=== PATIENT | female | born 1970 | race Caucasian/White ===

== ENCOUNTER → 2018-03-05 | Outpatient (CLI) | payer OTHER ==
--- NOTE | 2018-03-18 12:10 | MM ---
Reason for exam: clinical finding. Last mammogram was performed 3 years and 3 months ago. History: Patient has history of breast cancer at age 34. Family history of breast cancer in mother at age 32, breast cancer in maternal grandmother at age 61, breast cancer in aunt, and breast cancer in maternal grandmother. Indicated problem(s): lump or thickening in the left breast. Physical Findings: Nurse Summary: 1cm nodules in the left breast (nurse dw). MG 3D Diag Mammo W/Cad HANSA Bilateral CC and MLO view(s) were taken. Prior study comparison: December 14, 2014, mammogram, performed at [facility]. June 08, 2014, mammogram, performed at [facility]. July 30, 2013, mammogram, performed at [facility]. The breast tissue is heterogeneously dense. This may lower the sensitivity of mammography. There are benign appearing round, oval, circumscribed bilateral masses waxing and waning over multiple priors mammographically compatible with cysts. There is an increasing group of calcifications in the upper outer quadrant of the left breast at posterior depth 10cm from nipple. Other scattered bilateral typically benign calcifications are seen. Bilateral biopsy markers noted. These results were verbally communicated with the patient on 03/18/18. ASSESSMENT: Incomplete: need additional imaging evaluation, BI-RAD 0 RECOMMENDATION: Special view mammogram of the left breast. (magnification) Ultrasound of the left breast. (upper outer quadrant for palpable abnormalities) Manage on a clinical basis with regard to green discharge, typically physiologic.
== END | disposition home or self-care (01) ==
LOC: RADMAMWWP 09:54
PROVIDERS: ATTEND Internal Medicine
DX: N63.0 Unspecified lump in unspecified breast (principal); Z85.3 Personal history of malignant neoplasm of breast
CPT/HCPCS: 77066; G0279; 77062

== ENCOUNTER → 2018-03-24 | Outpatient (CLI) | payer OTHER ==
--- NOTE | 2018-03-25 12:03 | MM ---
Reason for exam: additional evaluation requested from abnormal screening. Last mammogram was performed 1 month ago. History: Patient has history of breast cancer at age 34. Family history of breast cancer in mother at age 32, breast cancer in maternal grandmother at age 61, breast cancer in aunt, and breast cancer in maternal grandmother. Lumpectomy of the left breast, 2005. Radiation therapy of the left breast, 2005. Excisional biopsy of the left breast. Took antineoplastic for 5 years beginning at age 34. Physical Findings: Nurse Summary: 1cm nodule in the left breast at 1 o'clock and 2 o'clock (nurse mj). MG 3D Follow Up No Charge LT CC with magnification, LM with magnification, and LM view(s) were taken of the left breast. Prior study comparison: March 05, 2018, bilateral MG 3d diag mammo w/cad HANSA. December 14, 2014, mammogram, performed at [facility]. The breast tissue is heterogeneously dense. This may lower the sensitivity of mammography. There is a increasing group of 1.1cm pleomorphic calcifications in the left upper outer quadrant, 10cm from nipple. These results were verbally communicated with the patient and result sheet given to the patient on 03/24/18. ASSESSMENT: Suspicious, BI-RAD 4 RECOMMENDATION: Stereotactic core biopsy of the left breast. Called with mammographic findings and has scheduled an appointment for the patient for 03/25/18 at 4:[address] Khoury. PRELIMINARY REPORT CALLED AND FAXED TO DR. KHOURY ON 03/25/18.
--- NOTE | 2018-03-25 12:08 | USB ---
Reason for exam: additional evaluation requested from abnormal screening. History: Patient has history of breast cancer at age 34. Family history of breast cancer in mother at age 32, breast cancer in maternal grandmother at age 61, breast cancer in aunt, and breast cancer in maternal grandmother. Lumpectomy of the left breast, 2004. Radiation therapy of the left breast, 2004. Excisional biopsy of the left breast. Took antineoplastic for 5 years beginning at age 34. US Breast Workup LT Left limited breast ultrasound including focal area of concern, retroareolar and axilla demonstrates a 1.4 x 0.4 x 1.2cm hypoechoic, probably cystic lesion at 12 o'clock, a 1.6 x 0.5 x 1.6cm mixed lesion at 1 o'clock BB at the palpable, biopsy is recommended, a 0.7 x 0.3 x 0.8cm cystic lesion at 2 o'clock BB, a 1.8 x 1.0 x 1.1cm cystic cluster at 2 o'clock BB, a 1.2 x 0.5 x 0.9cm mixed lesion at 2 o'clock BB possibly cyst with debris, a 0.8 x 0.5 x 0.5cm mixed lesion at 3 o'clock, possible cyst with debris, a 1.7 x 0.7 x 1.1cm cystic lesion at posterior nipple and a 1.0 x 0.9 x 0.9cm cystic lesion with floating debris at 3 o'clock. Multiple cystic areas visualized. These results were verbally communicated with the patient and result sheet given to the patient on 03/24/18. ASSESSMENT: Suspicious, BI-RAD 4 RECOMMENDATION: Ultrasound core biopsy of the left breast. (1 o'clock mixed lesion, palpable) Stereotactic core biopsy of the left breast. (calcifications) Called with mammographic findings and has scheduled an appointment for the patient for 03/25/18 at 4:[address] Khoury. PRELIMINARY REPORT CALLED AND FAXED TO DR. KHOURY ON 03/25/18.
== END | disposition home or self-care (01) ==
LOC: RADMAMWWP 15:09
PROVIDERS: ATTEND Internal Medicine
DX: R92.8 Other abnormal and inconclusive findings on diagnostic imaging of breast (principal)

== ENCOUNTER → 2018-03-27 | Outpatient (CLI) | payer OTHER ==
[2018-03-27 14:23] VITALS: BP 135/84; PULSE 92; RESP 18; TEMP 96.8; BMI 32.1
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
== END ==
LOC: WWCWWP 14:06
PROVIDERS: ATTEND Surgery
DX: Z53.9 Procedure and treatment not carried out, unspecified reason (principal)

== ENCOUNTER → 2018-03-29 | Outpatient (CLI) | payer OTHER ==
--- NOTE | 2018-03-31 09:32 | PE ---
Nuclear medicine PET/CT HISTORY: Left Breast carcinoma, subsequent Patient received 12.2 mCi F-18 FDG intravenously and delayed scanning was performed from the skull ba se to the mid thighs. Localization and attenuation correction CT scan was also performed. Neck and chest: Emphysematous changes are present within the lungs. No pleural or pericardial effusio n. Some basilar dependent atelectatic changes are present. Some calcified subcentimeter nodules prese nt left and right lower lobes compatible with old granulomatous disease. No mediastinal, axillary, or hilar adenopathy. Abdomen pelvis: The appendix shows luminal high density. No inflammatory change. No retroperitoneal a denopathy. No evident liver mass or suspicious hypermetabolic uptake. Osseous structures: Sclerotic focus present within the left ilium measures approximately 2.6 cm in gr eatest dimension on axial images. Smaller immediate adjacent sclerotic focus on axial image 25 measur es 7 to 8 mm towards the left acetabular roof. Sclerotic focus in the acetabular roof region on the r ight axial image 200 and measures 7 mm. No suspicious hypermetabolic uptake is identified however. De generative disc changes are present especially in the lower lumbar spine. Small focus of mandibular u ptake on the right shows an SUV value of approximately 4.7 of questionable clinical significance, pos sible periodontal disease. IMPRESSION: No suspicious hypermetabolic uptake to suggest metastatic disease. Emphysema. Old granulo matous disease. Probable bone islands within the pelvis.
== END ==
LOC: RADPETMAIN 10:16
PROVIDERS: ATTEND Nurse Practitioner Adult Health
DX: N63.0 Unspecified lump in unspecified breast (principal); N64.52 Nipple discharge; Z85.3 Personal history of malignant neoplasm of breast
CPT/HCPCS: 78815; A9552

== ENCOUNTER → 2018-04-07 | Day surgery (SDC) | payer OTHER ==
[2018-04-07 07:57] VITALS: RESP 16; BMI 31.0
--- NOTE | 2018-04-07 08:45 | P.OP ---
Date of Procedure: 04/07/18 Preoperative Diagnosis: Left breast mammographic abnormality Postoperative Diagnosis: Left breast mammographic abnormality, increasing group of 1.1 cm pleomorphic calcifications in the upper outer quadrant Procedure(s) Performed: Left breast stereotactic core biopsy Anesthesia: local Surgeon: Chata Manzanares Estimated Blood Loss (ml): 0 Pathology: other (left bresat tissue) Condition: stable Disposition: same day Indications for Procedure: Left breast increasing pleomorphic calcifications in the upper outer quadrant area Description of Procedure: Zhanna is a 47-year-old white female who is status post lumpectomy of the left breast in 2004. On a recent mammogram she was noted to have increasing calcifications in the left breast in the upper outer quadrant approximately 10 cm from the nipple. She was recommended to undergo a left breast stereotactic core biopsy, well as an ultrasound biopsy of a second area of concern in the left breast. The patient presents now for the stereotactic core biopsy. The patient was brought to the the stereotactic core room and positioned on the low rad table. The approach to target the lesion was a lateral to medial approach. This was felt to be the shortest route to the area of concern. The area was in the upper outer quadrant approximately 10 cm from the nipple. A film booker view was obtained clearly showing the area of concern. Following this stereo views were obtained. The lesion was targeted. The targeted coordinates were transmitted to the stereotactic table. The patient's breast was prepped using Betadine. 20 mL of 1% lidocaine were used used to anesthetize the area of concern. A 9-gauge vacuum assisted rotating core cutting needle was used to obtain specimens. The needle was driven to the correct coordinates. Pre-and post-fire radiographs revealed that the needle was in the correct location. Approximately 12 specimens were obtained. Radiograph of the specimen revealed that the area of concern had been obtained with calcifications in the specimen. A secure nupur top-hat blocking machine operator was used to identify the area that had been sampled. Correct location of the marker was confirmed radiographically. The specimen was sent to pathology. The patient is scheduled to follow-up with Dr. Dawson in 1 week. She will have ultrasound core biopsy of second area of concern in the left breast.
[2018-04-07 09:49] VITALS: BP 110/73; PULSE 64; TEMP 98.5
--- NOTE | 2018-04-07 10:04 | USB ---
EXAMINATION TYPE: US breast aspiration single LT DATE OF EXAM: 04/07/2018 COMPARISON: 03/24/2018 ultrasound CLINICAL HISTORY: R92.8 ABNORMAL MAMMOGRAM. Abnormal ultrasound Technique: Real-time linear array sonography is performed over the left breast reidentify the upper outer quadrant palpable region. This complex cyst was reidentified. The procedure was explained to the patient for post cyst aspiration and ultrasound-guided core biopsy. Cyst aspiration will be attempted first and if unsuccessful core biopsy would be performed. All questions were answered. Written and verbal informed consent was obtained. A timeout was performed. Under ultrasound guidance the area surrounding the left breast cyst at the palpable abnormality which appeared mildly complex was anesthetized with 1% lidocaine with sodium bicarbonate. Approximately 8 mL was utilized. Following adequate anesthesia, an 18-gauge spinal needle was advanced into the cyst and the cyst was aspirated. There appear to be collapse of the cyst during the procedure. A coil clip was placed at the biopsy site. Postprocedure mammogram: A post procedure mammogram was performed. Coil clip is identified. Additionally, the top and core marker from the patient's stereotactic core biopsy performed prior to this cyst aspiration is identified. Ribbon clip is in the region of the cyst aspiration. Discharge instructions were discussed with the patient. The patient will follow- up with the referring physician for results. Patient was released in stable condition having tolerated the procedure well. IMPRESSION: 1. Successful cyst aspiration complex cyst left upper outer quadrant 1:00 position 2. Placement of a coil clip at the cyst aspiration site. Recommendations: 1. Recommendations are pending pathology results. Pathology Results: Benign LEFT BREAST AT 1:00 POSITION, FINE NEEDLE ASPIRATION BIOPSY: Benign appearing micropapillary to papillary cellular aggregates suggestive of origin in cystic lesion with benign epithelial proliferation. Recommendation Follow up mammogram of the left breast in 6 months. BHAVYA
--- NOTE | 2018-04-07 16:31 | MM ---
EXAMINATION TYPE: MG stereo VAD BX LT DATE OF EXAM: 04/07/2018 COMPARISON: NONE CLINICAL HISTORY: Calcifications, abnormal mammogram TECHNIQUE: Stereotactic guided core biopsy of left breast. FINDINGS: Targeting was performed by surgery. Procedure was performed by surgery. Specimen: Single specimen is presented with multiple calcifications within the specimen. Postprocedure mammogram: 2 views of the left breast were obtained. This was performed in conjunction with the post procedure mammogram of the ultrasound guided biopsy. The surgical clip from the stereotactic core biopsy is identified. Calcifications appear to been resected. Coil clip from the ultrasound-guided core biopsy is within the [id number] weight from the stereotactic core location. Additional ribbon clip from prior biopsy is present. IMPRESSION: 1. Successful stereotactic core biopsy left breast calcifications. 2. Successful clip placement from stereotactic core biopsy and ultrasound- guided core biopsy left breast. Pathology Results: Benign LEFT BREAST LESION, NEEDLE CORE BIOPSIES: Fibrocystic spectrum lesion with areas of sclerosing adenosis, moderate duct hyperplasia, stromal sclerosis, duct cystic changes and abundant intraductal mineralizations. Recommendation Follow up mammogram of the left breast in 6 months. BHAVYA
== END ==
LOC: RADMAMWWP 07:23
PROVIDERS: ATTEND Surgery
DX: N60.12 Diffuse cystic mastopathy of left breast (principal); N60.22 Fibroadenosis of left breast; N60.92 Unspecified benign mammary dysplasia of left breast; N60.02 Solitary cyst of left breast; Z88.0 Allergy status to penicillin; Z88.7 Allergy status to serum and vaccine; Z91.030 Bee allergy status
CPT/HCPCS: 88305; 88173; 19081; 76942; 19000; A4648 ×2; J2001

== ENCOUNTER → 2018-04-11 | Outpatient (CLI) | payer OTHER ==
[2018-04-11 12:04] VITALS: BP 123/82; PULSE 93; RESP 18; TEMP 96.5; BMI 32.1
--- NOTE | 2018-04-11 12:18 | P.PN ---
Subjective Progress Note Date: 04/11/18 Principal diagnosis: Zhanna is a 47-year-old white female who is status post a left breast lumpectomy and radiation therapy at the age of 34 for invasive ductal carcinoma. She recently underwent a bilateral mammogram which revealed an area in the left breast for which stereotactic core biopsy was recommended and the second area for which ultrasound of aspiration/biopsy was recommended. The area of the serotactic core biopsy was felt to be benign. The area of the ultrasound aspiration revealed micropapillary cells and after discussion with pathology cannot rule out an intraductal papilloma and a needle localization and excision of this area has been recommended. The patient states she did have some initial discomfort related to the biopsies but is feeling better. Her last bilateral mammogram was in February 2018 no lesions of concern were noted in the right breast. Objective - Vital Signs Vital signs: Vital Signs Temp 96.5 F L 04/11/18 11:59 Pulse 93 04/11/18 11:59 Resp 18 04/11/18 11:59 BP 123/82 04/11/18 11:59 Pulse Ox 95 04/11/18 11:59 Intake & Output 04/10/18 04/11/18 04/11/18 18:59 06:59 18:59 Weight 98.883 kg - Exam BMI 32.2 - Constitutional General appearance: Present: cooperative, obese - EENT Eyes: Present: EOMI ENT: Present: hearing grossly normal - Neck Neck: Present: normal ROM - Respiratory Respiratory: bilateral: CTA - Cardiovascular Rhythm: regular Heart sounds: normal: S1, S2 - Gastrointestinal Gastrointestinal Comment(s): no guarding or rebound General gastrointestinal: Present: soft - Integumentary Integumentary Comment(s): no jaundice Integumentary: Present: normal turgor - Musculoskeletal Musculoskeletal: Present: gait normal - Psychiatric Psychiatric: Present: A&O x's 3, appropriate affect, intact judgment & insight - Additional findings Additional findings: Examination of the left breast reveals no evidence of infection at the biopsy site, there is some mild resolving ecchymosis, no evidence of hematoma Assessment and Plan Assessment: Impression: 1. Prior left breast cancer treated with lumpectomy and radiation therapy 2. Recent radiographic abnormality of the left breast with stereotactic core biopsy and ultrasound-guided aspiration revealing benign tissue on stereotactic biopsy and findings worrisome for intraductal papilloma on ultrasound-guided aspiration 3. History of lupus 4. Strong family history of breast cancer 6. Colitis Plan: 1. Needle localization excisional biopsy of ultrasound abnormality noted in the left breast this was marked with a corneal clip after the aspiration 2. Consider genetic counseling 3. Medical management of medical conditions Risk and benefits of the operative procedure been discussed with the patient and her and they wish to proceed. This will be scheduled in the near future. Cc: Dr. Peng Aranda
== END | disposition home or self-care (01) ==
LOC: WWCWWP 11:15
PROVIDERS: ATTEND Surgery
DX: Z53.9 Procedure and treatment not carried out, unspecified reason (principal)

== ENCOUNTER → 2018-05-08 | Outpatient (CLI) | payer OTHER ==
[2018-05-08 12:01] VITALS: BP 132/99; PULSE 83; RESP 18; TEMP 97.5; BMI 30.4
--- NOTE | 2018-05-08 12:33 | P.PN ---
Progress Note - Text Progress Note Date: 05/08/18 Zhanna is a 47-year-old white female who has a very strong family history of breast cancer. This includes 12 maternal aunts with breast cancer, mother diagnosed with breast cancer at 38, and the patient herself was diagnosed with a breast cancer at 34. The patient has recently undergone a stereotactic core biopsy of an area of concern in the left breast. This was the side in which the breast cancer was diagnosed. The biopsy revealed fibrocystic spectrum lesion with areas of sclerosing adenosis, moderate duct hyperplasia, stromal sclerosis, duct cystic changes and abundant intraductal mineralization's. Additionally an FNA of a palpable area was performed which revealed micropapillary to papillary cellular aggregates suggestive of origin in cystic lesion with benign epithelial proliferation. The case was discussed with pathology and secondary to her history it was recommended that excisional biopsy of this area be performed. The patient however states that she has been tested for BRCA 1 gene in the past and was told she was positive. She is no longer interested in any interventional biopsies and wishes to undergo bilateral mastectomies. She understands the risks and benefits of this and is going to see plastic surgery for immediate reconstruction. At this time we are waiting for her records from [facility] with respect to her prior breast cancer treatment at the age of 34. I had a long discussion with the patient and her today regarding her breast cancer risk. Again at this time the patient understands and wishes to undergo bilateral mastectomy. She understands that we do not believe she has breast cancer at this time but at minimum would recommend an excisional biopsy of the left breast area of concern. She and her want bilateral mastectomies to be performed. They understand that with the mastectomies no cancer may be found and still wish to proceed. Discussed risks include bleeding infection reaction to the anesthetic. Additionally the patient will need to have continued surveillance as not all breast tissue is removed 100%. She understands this as well. At this time we are waiting her medical records. CC: Consuelo Onofre
--- NOTE | 2018-05-09 16:58 | P.PN ---
Progress Note - Text Progress Note Date: 05/09/18 Ana came to the office today requesting that her records be released to her and stating she wanted a second opinion. I have talked to Consuelo Das the nurse practitioner in Dr. Khoury's office regarding the case. It is our concern that we do not have any pathology nor genetic testing results at this time which would warrant a bilateral mastectomy. Medical records which were provided from [place] did not include any pathology or genetic testing results. Ana was supposed to come to the office today at which time we were going to try to repeat the BRCA1 testing if we could not get the results from her prior reported testing. At this time the patient's care is under Consuelo Das/DR. Khoury. I have discussed this with Consuelo Das, she will keep us informed if we can be of further assistance.
--- NOTE | 2018-05-30 09:56 | P.PN ---
Progress Note - Text Progress Note Date: 05/30/18 I spoke with Consuelo Ceja nurse practitioner from Dr. Khoury's office today regarding Ana Cárdenas. Fernanda was unable to obtain documentation of a left breast cancer. We did obtain documentation from [place] of a benign fibroepithelial lesion removed in 2007. 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 The patient had been treated conservatively since that time. Recently she underwent a stereotactic and ultrasound core biopsy of the left breast. Stereotactic core biopsy was felt to be benign. The ultrasound core aspiration had benign-appearing micropapillary to papillary cellular aggregates; after discussion with pathology it was recommended that needle localization and excision of this area be performed. The patient was concerned that she had had a cancer in the left breast and that she had a very strong family history and had requested that bilateral mastectomies with reconstruction be performed. Patient also told us that she was BRCA1 positive. However, she is unable to provide documentation of any of these findings. BRCA1 was repeated and was negative. 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 No pathology or documentation was able to be provided for any family members. I would therefore recommend genetic counseling and continue to recommend needle local excisional biopsy the area of concern in the left breast. The patient is going to follow with Consuelo Ceja who is planning to refer her back here in the near future. The patient does have a vacation and will be unavailable for approximately 3 weeks.
== END ==
LOC: WWCWWP 10:36
PROVIDERS: ATTEND Surgery
DX: Z53.9 Procedure and treatment not carried out, unspecified reason (principal)

== ENCOUNTER → 2018-06-20 | Outpatient (CLI) | payer OTHER ==
[2018-06-20 16:02] VITALS: BP 135/84; PULSE 92; RESP 18; BMI 29.9
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
== END | disposition home or self-care (01) ==
LOC: WWCWWP 15:53
PROVIDERS: ATTEND Surgery
DX: Z53.9 Procedure and treatment not carried out, unspecified reason (principal)

== ENCOUNTER → 2019-05-22 | Outpatient (CLI) | payer OTHER ==
--- NOTE | 2019-05-22 11:35 | MM ---
Reason for exam: additional evaluation requested from prior study. Last mammogram was performed 1 year and 2 months ago. History: Patient is postmenopausal and has history of breast cancer at age 34. Family history of breast cancer in mother at age 32, breast cancer in maternal grandmother at age 61, breast cancer in aunt, and breast cancer in maternal grandmother. Benign MG stereo VAD BX LT of the left breast, April 07, 2018. Benign US breast aspiration single LT of the left breast, April 07, 2018. Lumpectomy of the left breast, 2004. Radiation therapy of the left breast, 2004. Excisional biopsy of the left breast. Took antineoplastic for 5 years beginning at age 34. Physical Findings: Nurse Summary: 1cm nodule in the let breast at 12 and 2 o'clock (nurse kp). MG 3D Diag Mammo W/Cad HANSA Bilateral CC and MLO view(s) were taken. Prior study comparison: March 24, 2018, left breast MG 3d follow up no charge LT. March 05, 2018, bilateral MG 3d diag mammo w/cad HANSA. Finding #1: Architectural distortion in the left breast consistent with known excision changes. Finding #2: There are typically benign round calcifications in both breasts. Previous mammotome biopsy in the right and left breast x 3. There is no discrete abnormality. These results were verbally communicated with the patient and result sheet given to the patient on 05/22/19. ASSESSMENT: Benign, BI-RAD 2 RECOMMENDATION: Follow-up diagnostic mammogram of both breasts in 1 year.
== END | disposition home or self-care (01) ==
LOC: RADMAMWWP 10:23
PROVIDERS: ATTEND Internal Medicine
DX: Z08 Encounter for follow-up examination after completed treatment for malignant neoplasm (principal); Z85.3 Personal history of malignant neoplasm of breast
CPT/HCPCS: 77066; G0279; 77062

== ENCOUNTER 2024-03-13 16:30 | Emergency (ER) | payer OTHER ==
[2024-03-13 16:49] VITALS: TEMP 98
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
--- NOTE | 2024-03-13 18:11 | XR ---
EXAMINATION TYPE: XR wrist complete RT DATE OF EXAM: 03/13/2024 5:36 PM COMPARISON: None. CLINICAL INDICATION: Female, 53 years old with history of injury, pain, twisting injury yesterday TECHNIQUE: 3 view(s) obtained. FINDINGS: No acute fractures evident. No dislocations evident. Soft tissues appear normal. Joint spaces appear preserved. There is pain at the anatomic snuff box nuclear medicine bone scan could be performed for additional evaluation. Follow up exams can be performed 7-10 days from acute trauma for continued pain. IMPRESSION: 1. No acute osseous abnormality right wrist [facility] Brandon Anderson, , 03/13/2024 6:08 PM
[2024-03-13 19:44] VITALS: BP 133/88; PULSE 64; RESP 16
== END 2024-03-13 19:36 | disposition home or self-care (01) ==
LOC: EC 16:30
DX: M25.531 Pain in right wrist (principal); F17.200 Nicotine dependence, unspecified, uncomplicated; Z88.0 Allergy status to penicillin; Z88.7 Allergy status to serum and vaccine; Z91.030 Bee allergy status
CPT/HCPCS: 29125; 99283